=== PATIENT | male | born 1985 | race African-American/Black ===

== ENCOUNTER 2023-01-11 23:08 | Emergency (ER) | payer SELFPAY ==
[~2023-01-11] VITALS: Ht 172.7 cm; Wt 89.6 kg
[2023-01-11 23:12] VITALS: BP 141/108
[2023-01-12] MEDS ORDERED: BACITRACIN ZINC OINT UDPKT TOP ONE (00:15)
[2023-01-12] MEDS ORDERED: LIDOCAINE HCL/PF 1% 10 MG/ML 5ML VIAL INFIL ONE (00:15)
[2023-01-12] MEDS ORDERED: TETANUS, DIPHTHERIA, PERTUSSIS VAC/PF 0.5ML (>10YR OLD) IM ONE ×2 (00:15→02:15)
[2023-01-12] MEDS ORDERED: LIDOCAINE HCL/PF 1% 10 MG/ML 5ML VIAL INFIL NR (02:15)
[2023-01-12] MEDS ORDERED: BACITRACIN ZINC OINT UDPKT TOP NR (02:15)
[2023-01-12] MEDS ORDERED: BO1 TP (04:36)
== END 2023-01-12 05:07 | disposition home or self-care (01) ==
LOC: ER 23:08
DX: S01.01XA Laceration without foreign body of scalp, initial encounter (principal); W22.8XXA Striking against or struck by other objects, initial encounter; Y93.89 Activity, other specified; Y92.015 Private garage of single-family (private) house as the place of occurrence of the external cause
CPT/HCPCS: 90471; 90715; 99283; J3490; Z7610